=== PATIENT | male | born 1985 | race Caucasian/White ===

== ENCOUNTER 2022-06-05 14:23 | Outpatient (REF) | payer OTHER, SELFPAY ==
--- NOTE | ~2022-06-05 | US_ITS ---
EXAMINATION: US SCROTUM CLINICAL INFORMATION: Scrotal pain. COMPARISON: None TECHNIQUE: A sonogram of the scrotum was performed assessing moreno-scale appearance and color Doppler flow. Spectral Doppler analysis of the arterial and venous flow were performed in the testes bilaterally. FINDINGS: RIGHT: Right testicle measures 5.3 x 2.7 x 3.5 cm, volume 26.5 mL. No focal testicular parenchymal lesions are visualized. Spectral Doppler analysis of the arterial and venous flow is normal in the right testis. Right epididymal head is normal in size. No right hydrocele or varicocele is seen. Right epididymal Doppler flow is normal. LEFT: Left testicle measures 5.2 x 2.6 x 3.4 cm, volume 24.3 mL. No focal testicular parenchymal lesions are visualized. Spectral Doppler analysis of the arterial and venous flow is normal in the left testis. Left epididymal head is normal in size. There are 2 epididymal cyst largest measuring 0.8 x 0.4 x 0.7 cm. No left hydrocele or varicocele is seen. Left epididymal Doppler flow is normal. US/US scrotum IMPRESSION: 2 left epididymal head cyst with largest measuring 0.8 cm. Both testes and the right epididymis is unremarkable.
== END 2022-06-05 14:24 | disposition home or self-care (01) ==
LOC: HO.US 14:23
PROVIDERS: PCP Internal Medicine Medical Oncology; Visit Provider Internal Medicine Medical Oncology
DX: N50.82 Scrotal pain (principal)
CPT/HCPCS: 76870

== ENCOUNTER 2023-11-24 11:01 | Outpatient (REF) | payer OTHER, SELFPAY ==
[2023-11-26 21:04] LABS: Transglutaminase IgA 23.5 U/mL
== END 2023-11-24 11:02 | disposition home or self-care (01) ==
LOC: HO.10HDL 11:01
PROVIDERS: Visit Provider Internal Medicine Medical Oncology
DX: K90.0 Celiac disease (principal)
CPT/HCPCS: 36415; 86364

== ENCOUNTER 2024-10-20 15:24 | Outpatient (REF) | payer OTHER, SELFPAY ==
--- NOTE | ~2024-10-20 | XR_ITS ---
EXAMINATION: XR CHEST CLINICAL INFORMATION: DYSHPAGIA, TACHYCARDIA COMPARISON: None available. TECHNIQUE: 2 views of the chest were obtained. FINDINGS: No significant abnormality is noted involving the heart, lungs, mediastinum, bony thorax or soft tissues. XR/XR chest 2V IMPRESSION: No acute cardiopulmonary disease. Electronically signed by: Chris Sanabria MD 10/20/2024 03:54 PM [facility]
--- OUTSIDE RECORDS SUMMARY | 2024-10-20 16:01 | XMS_ITS ---
Author Organization Kp Rice III, MD Address [address] [place] [address] [place] [address] Care Team Providers Care Wood Planer Name Role Phone Kp Rice Primary Care Provider [phone] Allergies Allergen (clinical drug ingredient) Drug/Non Drug Allergy documented on EMR Reaction Allergy Type Onset Date Status dexamethasone Dexamethasone Unknown Drug Allergy Active Results Component Value Reference Range Notes URINE DIP STICK Reviewed date:05/20/2024 10:43:31 AM Interpretation: Performing Lab: Notes/Report: SG 1.005 1.005 - 1.025 pH 6.5 5.0 - 9.0 GIL Negative Negative - NIT Negative Negative - PRO Negative Negative - Trace GLU Negative Negative - KET Negative Negative - UBG 0.2 0.1 - 1.8 JESUS Negative 0.2 - 1.3 BLD Negative Negative - REASON FOR VISIT Annual Exam Social History Tobacco Use: Social History Observation Description Date Details (start date - stop date) Never Smoker NA - NA Sex Assigned At : Social History Observation Description Sex Assigned At Male Tobacco Use/Smoking Question Answer Notes Patient is a nonsmoker Additional Findings: Tobacco Non-User Aggressive non-smoker Alcohol Screen Question Answer Notes Did you have a drink containing alcohol in the p ast year? No Points 0 Interpretation Negative Problems Problem Type SNOMED Code ICD Code Onset Dates Problem Status W/U Status Risk Notes Problem Gastroesophageal reflux disease with esophagitis (disorder) (515510478) Gastro-esoph ageal reflux disease with esophagitis, without bleeding (K21.00) Active confirmed Vital Signs Temperature 97.2 degrees Fahrenheit 05/20/20 24 Blood pressure systolic 138 mm Hg 05/20/20 24 Blood pressure diastolic 80 mm Hg 024 Heart Rate 98 /min 05/20/2024 Height 68 in 05/20/2024 Weight 179 lbs 05/20/2024 BMI 27.21 kg/m2 05/20/2024 Encounters Encounter Location Date Provider Diagnosis Kp Rice III, MD [address] [place] [address] [place] [address] 05/20/2024 Kp Rice Overweight E66.3 ; Celiac disease K90.0 ; GERD with esophagitis K21.0 and History of Lyme disease Z86.19 Assessments Encounter Date Diagnosis (ICD Code) Assessment Notes Treatment Notes Treatment Clinical Notes 05/20/2024 Overweight (ICD-10 - E66.3) He weighs 179 with a body mass index of 27. We have discussed his cardiac risk factors today. We have reviewed his diet and nutrition. We made a plan to lose weight until the body mass index is in the middle of the normal range. 05/20/2024 Celiac disease (ICD-10 - K90.0) The endomysial antibody level was 23, which is elevated.The endoscopic biopsy was also consistent with celiac disease. He is asymptomatic at this time. Other members of his family have the same disorder. 05/20/2024 GERD with esophagitis (ICD-10 - K21.0) This problem is well controlled with occasional use of medication [id number]. 05/20/2024 History of Lyme disease (ICD-10 - Z86.19) He is no neurological or joint symptoms today. He'll be observed for this. Plan Of Treatment Pending Test Test Name Order Date PROFILE, FASTING (COMPREHENSIVE METABOLI C) 05/20/2024 PSA, TOTAL 05/20/2024 CBC w DIFF 05/20/2024 Lipid Panel 05/20/2024 Next Appt Details Follow Up: 1 Year, Reason: A nnual exam review labs Provider Name:Kp Rice, 05/23/2025 10:30:00 AM, [address] [place] [address] [address], [place], [address], Progress Notes * [place] MIXONOB:1985 (38 yo M)Acc No.[id number]:05/20/2024 Progress Notes Patient:?Irineo Mixon Provider:?Kp Rice MD :1985???Age:38 Y???Sex:Male Saad e:05/20/2024 Address:[address] [place], [place] [id number] Subjective: * Chief Complaints: * ???Annual Exam * HPI: ???Depression Screening:? He comes to the office today at the age of 38 for his annual physical examination. All of his questions are answered today. A careful examination showed no new problems. He seems healthy and well. His weight is in the normal range. Blood work done May 14, 2024 showed total cholesterol 132, triglycerides 89, HDL 41, LDL 74 ratio 3.2Glucose 80 BUN 16, creatinine 1.0, white count 6000, hematocrit 47.9 platelets 140 PSA 1.2. ?PHQ-9?Little interest or pleasure in doing things?Not at all ?Feeling down, depressed, or hopeless?Not at all ?Trouble falling or staying asleep, or sleeping too much?Not at all ?Feeling tired or having little energy?Not at all ?Poor appetite or overeating?Not at all ?Feeling bad about yourself or that you are a failure, or have let yourself or your family down?Not at all ?Trouble concentrating on things, such as reading the newspaper or watching television?Not at all ?Moving or speaking so slowly that other people could have noticed; or the opposite, being so fidgety or restless that you have been moving around a lot more than usual?Not at all ?Thoughts that you would be better off or of hurting yourself in some way?Not at all ?Total Score?0 ???COVID-19 Screening:?Questions?Have you experienced fever, chills, cough, sore throat, shortness of breath, difficulty breathing, muscle aches, loss of taste or smell??No ?Have you been exposed to the virus within the last 10 days??No ?Have you travelled internationally in the last 10 days??No ?Have you been exposed to COVID-19 in the past??Yes ???SDOH Questions:?SDOH Questions?In the past year have you been worried about losing your housing??No ?In the past year have you or any family members you live with been unable to get any of the following when it was really needed? Check all that apply:?None * ROS:?General/Constitutional:?pain?only normal aches and pains.?Chills?denies.?Fatigue?admits.?Fever?denies.?ENT:?Decreased hearing?denies.?Respiratory:?Cough?denies.?Cardiovascular:?Chest pain with exertion?denies.?Dyspnea on exertion?denies.?Shortness of breath?denies.?Gastrointestinal:?Constipation?denies.?Decreased appetite?denies.?Diarrhea?denies.?Heartburn?controlled with medications.?Nausea?denies.?Rectal bleeding?denies.?Vomiting?denies.?Hematology:?bruising?denies.?petechiae?denies.?Swollen glands?none have been noted.?Genitourinary:?Frequent urination?denies.?Musculoskeletal:?Muscle aches?denies.?Painful joints?denies.?Sciatica?denies.?Weakness?denies.?Skin:?Itching?denies.?Rash?denies.?Skin lesion(s)?denies.?Neurologic:?Difficulty speaking?denies.?Dizziness?denies.?Headache?denies.?Low back pain?denies.?Psychiatric:?Depressed mood?denies.? * Medical History:? * Surgical History:?benign les ion removed left mandible 2011surgical repair of torn ligament, shoulder 2013Upper endoscopy to evaluate possibility of celiac disease. 2023 * Hospitalization/Major Diagno stic Procedure:?Denies Past Hospitalization * Family History:?Father: kayy gomez 52 yrs, healthy.?Mother: alive 46 yrs, migraines,hypoglycemia.?1 sister(s) - healthy. 1 son(s) , 1 daughter(s) . .? He has one daughter, Lynnette and a son born 2019. Children diagnosed with Celiac Dicease. * Social History:?Tobacco Use:?Tobacco Use/Smoking?Patient is a?nonsmoker ?Additional Findings: Tobacco Non-User?Aggressive non-smoker ???Drugs/Alcohol:?Drugs?Have you used drugs other than those for medical reasons in the past 12 months??No ?Alcohol Screen?Did you have a drink containing alcohol in the past year??No ?Points?0 ?Interpretation?Negative ???He is single and was born in [place]. 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 He has been to [place] 2014. * Medications:?None * Allergies:?Dexamethasone: Fabian Ly[Allergies Verified] Objective: * Vitals:?Ht: 68 , Wt: 179, BM I:27.21, BP: 138/80, HR: 98, Temp: 97.2, Ht-cm: 172.72, Wt-k.19. * ???Past Orders: Lab:URINE DIP STICK * Order Date 05/20/2024 11/25/2022 08/21/2020 SG 1.005 (Ref Range: 1.005 - 1.025) 1.005 1.005 pH 6.5 (Ref Range: 5.0 - 9.0) 7.0 6.5 GIL Negative (Ref Range: Negative -) Neg negative NIT Negative (Ref Range: Negative -) Neg negative PRO Negative (Ref Range: Negative - Trace) Neg negative GLU Negative (Ref Range: Negative -) Neg negative KET Negative (Ref Range: Negative -) Neg negative UBG 0.2 (Ref Range: 0.1 - 1.8) 0.2 0.2 JESUS Negative (Ref Range: 0.2 - 1.3) Neg negative BLD Negative (Ref Range: Negative -) Neg negative Menstrating NR n/a n/a * Examination: ???General Examination: ?GENERAL APPEARANCE:?pleasant, well nourished, well developed, in no acute distress, calm and relaxed , overweight , man.?HEAD:?atraumatic, normocephalic.?EYES:?eomi, perrla, anicteric, conjugate.?EARS:?normal.?NOSE:?septum intact.?ORAL CAVITY:?normal, unremarkable.?NECK/THYROID:?no jugular venous distention, no carotid bruit, thyroid normal.?LYMPH NODES:?no enlarged lymph nodes,spleen normal.?SKIN:?no suspicious lesions, anicteric.?HEART:?no clicks, gallops, murmurs, or rubs, regular rhythm, S1, S2 normal, no s3, or vascular bruits.?LUNGS:?clear to auscultation .?BREASTS:??no masses palpable bilaterally.?ABDOMEN:?bowel sounds normal, no ascites, no organomegaly, no mass , overweight.?RECTAL EXAM:?not examined.?MUSCULOSKELETAL:?extremities unremarkable, no clubbing, cyanosis or edema.?PERIPHERAL PULSES:?normal.?NEUROLOGIC:?alert and oriented, cranial nerves 2-12 grossly intact, deep tendon reflexes 2+ symmetrical, motor strength normal upper and lower extremities, sensory exam intact.?PSYCH:?alert, oriented , cognitive function intact , cooperative with exam , good eye contact , judgement and insight good , mood/affect full range , speech clear , thought process logical, goal directed.? Assessment: * Assessment: 1.?Overweight - E66.3, He we ighs 179 with a body mass index of 27. We have discussed his cardiac risk factors today. We have reviewed his diet and nutrition. We made a plan to lose weight until the body mass index is in the middle of the normal range.?2.?Celiac disease - K90.0, The endomysial antibody level was 23, which is elevated.The endoscopic biopsy was also consistent with celiac disease. He is asymptomatic at this time. Other members of his family have the same disorder.?3.?GERD with esophagitis - K21.0, This problem is well controlled with occasional use of medication [id number].?4.?History of Lyme disease - Z86.19, He is no neurological or joint symptoms today. He'll be observed for this.? Plan: * Treatment: 2.?Celiac disease?LAB: PROFILE, FASTING (COMPREHENSIVE METABOLIC) ?LAB: PSA, TOTAL ?LAB: CBC w DIFF ?LAB: Lipid Panel * Labs:? * ?Lab: URINE DIP STICK ? Value Reference Range ?SG 1.005 1.005 - 1.025 * ?pH 6.5 5.0 - 9.0 * ?GIL Negative Negative - * ?NIT Negative Negative - * ?PRO Negative Negative - Trac e * ?GLU Negative Negative - * ?KET Negative Negative - * ?UBG 0.2 0.1 - 1.8 * ?JESUS Negative 0.2 - 1.3 * ?BLD Negative Negative - * Procedure Codes:?23162 URINE -NO MICRO * Preventive Medicine:? ??Counseling:?Care goal follow-up plan:?Counseling for abnormal BMI given?Yes ?Above Normal BMI Follow-up?Dietary management education, guidance, and counseling, Dietary needs education, Exercise promotion: strength training, Exercise promotion: stretching, Feeding regime, Giving encouragement to exercise, Lifestyle education regarding diet, Nutrition / feeding management, Nutrition therapy, Prescribed activity/exercise education, Prescribed diet education, Prescribed dietary intake, Special diet education, Weight monitoring , Intervention, Order not done: Medical or Other reason not done * Follow Up:?1 Year (Reason: A nnual exam review labs ) * Images: * Sign off status: Completed true * Provider:?Kp Rice MD Date:?05/03 Generated for Jeffry alatorre/Dwight/eTransmitting on:?10/20/2024 04:00 PM EST History and Physical Notes * HPI (History of Present Illness) Category Sub-Category Detail Notes Depression Screening PHQ-9 Little inte rest or pleasure in doing things: Not at all Feeling down, depressed, or hopeless: No t at all Trouble falling or staying asleep, or sl eeping too much: Not at all Feeling tired or having little energy: N ot at all Poor appetite or overeating: Not at all Feeling bad about yourself o r that you are a failure, or have let yourself or your family down: Not at all Trouble concentrating on thi ngs, such as reading the newspaper or watching television: Not at all Moving or speaking so slowly that other people could have noticed; or the opposite, being so fidgety or restless that you have been moving around a lot more than usual: Not at all Thoughts that you would be b page off or of hurting yourself in some way: Not at all Total Score: 0 COVID-19 Screening Questions Have you had any new onset fever, chills, cough, congestion, sore throat, shortness of breath, muscle aches?: No Have you been exposed to the virus with n the last 10 days?: No Have you travelled internationally [facility] last 10 days?: No Have you been exposed to COVID-19 in the past?: Yes SDOH Questions SDOH Questions In the past year have you been worried about losing your housing?: No In the past year have you or any family members you live with been unable to get any of the following when it was really needed? Check all that apply:: None Examination Category Sub-Category Detail Notes General Examination GENERAL APPEARANCE: pleasant , well nourished, well developed, in no acute distress, calm and relaxed , overweight , man HEAD: atraumatic, normocep halic EYES: eomi, perrla, anicte himanshu, conjugate EARS: normal NOSE: septum intact NECK/THYROID: no jugular venous di stention, no carotid bruit, thyroid normal HEART: no clicks, gallops, murmurs, or rubs, regular rhythm, S1, S2 normal, no s3, or vascular bruits LUNGS: clear to auscultatio n ABDOMEN: bowel sounds normal, no ascites, no organomegaly, no mass , overweight NEUROLOGIC: alert and oriented, cranial nerves 2-12 grossly intact, deep tendon reflexes 2+ symmetrical, motor strength normal upper and lower extremities, sensory exam intact SKIN: no suspicious lesion s, anicteric PERIPHERAL PULSES: normal BREASTS: no masses palpable b ilaterally MUSCULOSKELETAL: extremities unremark able, no clubbing, cyanosis or edema LYMPH NODES: no enlarged lymph no britton,spleen normal RECTAL EXAM: not examined PSYCH: alert, oriented , co gnitive function intact , cooperative with exam , good eye contact , judgement and insight good , mood/affect full range , speech clear , thought process logical, goal directed ORAL CAVITY: normal, unremarkable
--- OUTSIDE RECORDS SUMMARY | 2024-10-20 16:01 | XMS_ITS | Patient Health Record ---
Author Organization [facility] Address [address] [facility] [address] [place] [address] Care Team Providers Care Acid Painter Name Role Phone None, None Primary Care Provider Unavailabl e ALLERGIES No Known Allergies REASON FOR REFERRAL No Information SOCIAL HISTORY Sex Assigned At : Social History Observation Description Sex Assigned At Unknown PLAN OF TREATMENT No Information Insurance Providers Payer Name Payer Address Payer Phone Subscriber Number Group Number Insured Name Patient Relationship to Insured Coverage Start Date Coverage End Date [place] [employer] [address] [place] [phone] [id number] Irineo Iglesias Self - patient is the insured 2020
--- OUTSIDE RECORDS SUMMARY | 2024-10-20 16:01 | XMS_ITS ---
Author Organization Kp Rice III, MD Address [address] [place] [address] [place] [address] Care Team Providers Care Bill Peddler Name Role Phone Kp Rice Primary Care Provider Allergies Allergen (clinical drug ingredient) Drug/Non Drug Allergy documented on EMR Reaction Allergy Type Onset Date Status dexamethasone Dexamethasone Unknown Drug Allergy Active REASON FOR VISIT SOB while laying down, Excersice x 1 month, onset oct fever, body ache, sob still, high heart rate,khas personal soyvi8i, gym is not same Social History Tobacco Use: Social History Observation Description Date Details (start date - stop date) Never Smoker NA - NA Sex Assigned At : Social History Observation Description Sex Assigned At Male Tobacco Use/Smoking Question Answer Notes Patient is a nonsmoker Additional Findings: Tobacco Non-User Aggressive non-smoker Vital Signs Temperature 97.3 degrees Fahrenheit 10/20/20 24 Blood pressure systolic 128 mm Hg 10/20/20 24 Blood pressure diastolic 98 mm Hg 024 Heart Rate 125 /min 10/20/2024 Height 68 in 10/20/2024 Weight 180 lbs 10/20/2024 BMI 27.37 kg/m2 10/20/2024 Encounters Encounter Location Date Provider Diagnosis Kp Rice III, MD [address] [place] [address] [place] [address] 10/20/2024 Kp Rice Dysphagia R13.10 ; Tachycardia, unspecified R00.0 ; Overweight E66.3 ; Chest pain R07.9 and Hypertension I10 Assessments Encounter Date Diagnosis (ICD Code) Assessment Notes Treat ment Notes Treatment Clinical Notes 10/20/2024 Dysphagia (ICD-10 - R13.10) 10/20/2024 Tachycardia, unspecified (ICD-10 - R00.0) 10/20/2024 Overweight (ICD-10 - E66.3) 10/20/2024 Chest pain (ICD-10 - R07.9) 10/20/2024 Hypertension (ICD-10 - I10) Plan Of Treatment Pending Test Test Name Order Date PROFILE, FASTING (COMPREHENSIVE METABOLI C) 10/20/2024 LDH 10/20/2024 TSH (THYROID STIMULATING HORMONE) 2023 CPK 10/20/2024 XR CHEST 2 VIEW PA & LAT 10/20/2024 Echocardiogram 10/20/2024 CBC WITH AUTO DIFF 10/20/2024 Lipid Panel 10/20/2024 Free T4 (Free Thyroxine) 10/20/2024 ECG 7 day holter monitor 10/20/2024 Next Appt Details Provider Name:Kp Rice, 05/23/2025 10:30:00 AM, [address] [place] [address] , [address], [address], Progress Notes * Lorenzo MIXONwDOB:1985 (39 yo M)Acc No.[id number]:10/20/2024 Progress Notes Patient:?Irineo MIXON Provider:?Kp Rice MD :1985???Age:39 Y???Sex:Male Saad e:10/20/2024 Address:[address] [place] [address] Subjective: * Chief Complaints: * ???1. SOB while laying down, Excersice x 1 month. 2. Onset oct fever, body ache, sob still, high heart rate, khas personal srojn6t, gym is not same. * HPI: ???COVID-19 Screening:?Questions?Have you had any new onset fever, chills, cough, congestion, sore throat, shortness of breath, muscle aches??No * ROS:?General/Constitutional:?pain?only normal aches and pains.?Chills?denies.?Fatigue?admits.?Fever?denies.?ENT:?Decreased hearing?denies.?Respiratory:?Cough?denies.?Cardiovascular:?Chest pain with exertion?denies.?Dyspnea on exertion?denies.?Shortness of breath?denies.?Gastrointestinal:?Constipation?denies.?Decreased appetite?denies.?Diarrhea?denies.?Heartburn?denies.?Nausea?denies.?Rectal bleeding?denies.?Vomiting?denies.?Hematology:?bruising?denies.?petechiae?denies.?Swollen glands?none have been noted.?Genitourinary:?Frequent urination?denies.?Musculoskeletal:?Muscle aches?denies.?Painful joints?denies.?Sciatica?denies.?Weakness?denies.?Skin:?Itching?denies.?Rash?denies.?Skin lesion(s)?denies.?Neurologic:?Difficulty speaking?denies.?Dizziness?denies.?Headache?denies.?Low back pain?denies.?Psychiatric:?Depressed mood?denies.? * Medical History:?Atypical ch est pain, Shingles 2011, Lyme disease 2008, Ligament in shoulder, 2013, Overweight, November 2018 GERD. * Surgical History:?benign les ion removed left mandible 2011, surgical repair of torn ligament, shoulder 2013, Upper endoscopy to evaluate possibility of celiac disease. 2023. * Hospitalization/Major Diagno stic Procedure:?Denies Past Hospitalization. * Family History:?Father: kayy e 52 yrs, healthy.?Mother: alive 46 yrs, migraines,hypoglycemia.?1 sister(s) - healthy. 1 son(s) , 1 daughter(s) . .? He has one daughter, Lynnette and a son born 2020 [place]. Children diagnosed with Celiac Dicease. * Social History:?Tobacco Use:?Tobacco Use/Smoking?Patient is a?nonsmoker ?Additional Findings: Tobacco Non-User?Aggressive non-smoker ???He is single and was born in [place]. 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 He has been to [employer] 2014. * Medications:?None * Allergies:?Dexamethasone: Al lergy - Criticality High. Objective: * Vitals:?Ht: 68 , Wt: 180, BM I:27.37, BP: 128/98, HR: 125, Temp: 97.3, Ht-cm: 172.72, Wt-k.65. * Examination: ???General Examination: ?GENERAL APPEARANCE:?pleasant, well nourished, well developed, in no acute distress, calm and relaxed.?HEAD:?atraumatic, normocephalic.?EYES:?eomi, perrla, anicteric, conjugate.?EARS:?normal.?NOSE:?septum intact.?ORAL CAVITY:?normal, unremarkable.?NECK/THYROID:?no jugular venous distention, no carotid bruit, thyroid normal.?LYMPH NODES:?no enlarged lymph nodes,spleen normal.?SKIN:?no suspicious lesions, anicteric.?HEART:?no clicks, gallops, murmurs, or rubs, regular rhythm, S1, S2 normal, no s3, or vascular bruits.?LUNGS:?clear to auscultation .?BREASTS:??no masses palpable bilaterally.?ABDOMEN:?bowel sounds normal, no ascites, no organomegaly, no mass.?RECTAL EXAM:?not examined.?MUSCULOSKELETAL:?extremities unremarkable, no clubbing, cyanosis or edema.?PERIPHERAL PULSES:?normal.?NEUROLOGIC:?alert and oriented, cranial nerves 2-12 grossly intact, deep tendon reflexes 2+ symmetrical, motor strength normal upper and lower extremities, sensory exam intact.?PSYCH:?alert, oriented.? Assessment: * Assessment: 1.?Dysphagia - R13.10???2.?T achycardia, unspecified - R00.0???3.?Overweight - E66.3???4.?Chest pain - R07.9???5.?Hypertension - I10??? Plan: * Treatment: 2.?Tachycardia, unspecified?LAB: PROFILE, FASTING (COMPREHENSIVE METABOLIC) ?LAB: LDH ?LAB: TSH (THYROID STIMULATING HORMONE) ?LAB: CPK ?LAB: CBC WITH AUTO DIFF ?LAB: Lipid Panel ?LAB: Free T4 (Free Thyroxine) ?Imaging: XR CHEST 2 VIEW PA & LAT ?Imaging: Echocardiogram ?Imaging: ECG 7 day holter monitor 3.?Overweight?LAB: PROFILE, FASTING (COMPREHENSIVE METABOLIC) ?LAB: LDH ?LAB: TSH (THYROID STIMULATING HORMONE) ?LAB: CPK ?LAB: CBC WITH AUTO DIFF ?LAB: Lipid Panel ?LAB: Free T4 (Free Thyroxine) 4.?Chest pain?LAB: PROFILE, FASTING (COMPREHENSIVE METABOLIC) ?LAB: LDH ?LAB: TSH (THYROID STIMULATING HORMONE) ?LAB: CPK ?LAB: CBC WITH AUTO DIFF ?LAB: Lipid Panel ?LAB: Free T4 (Free Thyroxine) 5.?Hypertension?LAB: PROFILE, FASTING (COMPREHENSIVE METABOLIC) ?LAB: LDH ?LAB: TSH (THYROID STIMULATING HORMONE) ?LAB: CPK ?LAB: CBC WITH AUTO DIFF ?LAB: Lipid Panel ?LAB: Free T4 (Free Thyroxine) * Preventive Medicine:? ??Counseling:?Care goal follow-up plan:?Counseling [...] Medical or Other reason not done * Images: * The named appointment provid er may or may not be the originator of this progress note, and it is not deemed complete until electronically signed by the appointment provider. Sign off status: Pending * Provider:?Kp Rice MD Date:?10/03 Generated for Jeffry alatorre/Dwight/eTransmitting on:?10/20/2024 04:00 PM EST History and Physical Notes * HPI (History of Present Illness) Category Sub-Category Detail Notes COVID-19 Screening Questions Have you had any new onset fever, chills, cough, congestion, sore throat, shortness of breath, muscle aches?: No Examination Category Sub-Category Detail Notes General Examination GENERAL APPEARANCE: pleasant , well nourished, well developed, in no acute distress, calm and relaxed HEAD: atraumatic, normocep halic EYES: eomi, perrla, anicte himanshu, conjugate EARS: normal NOSE: septum intact NECK/THYROID: no jugular venous di stention, no carotid bruit, thyroid normal HEART: no clicks, gallops, murmurs, or rubs, regular rhythm, S1, S2 normal, no s3, or vascular bruits LUNGS: clear to auscultatio n ABDOMEN: bowel sounds normal, no ascites, no organomegaly, no mass NEUROLOGIC: alert and oriented, cranial nerves 2-12 grossly intact, deep tendon reflexes 2+ symmetrical, motor strength normal upper and lower extremities, sensory exam intact SKIN: no suspicious lesion s, anicteric PERIPHERAL PULSES: normal BREASTS: no masses palpable b ilaterally MUSCULOSKELETAL: extremities unremark able, no clubbing, cyanosis or edema LYMPH NODES: no enlarged lymph no britton,spleen normal RECTAL EXAM: not examined PSYCH: alert, oriented ORAL CAVITY: normal, unremarkable
--- OUTSIDE RECORDS SUMMARY | 2024-10-20 16:01 | XMS_ITS ---
Author Organization Kp Rice III, MD Address [address] [place] [address] [place] [address] Care Team Providers Care Applications Trainer Name Role Phone Kp Rice Primary Care Provider [phone] REASON FOR VISIT Annual Exam Social History Sex Assigned At : Social History Observation Description Sex Assigned At Male Encounters Encounter Location Date Provider Diagnosis Kp Rice III, MD [address] [place] [address] [place] [address] 04/09/2024 Kp Rice Plan Of Treatment Next Appt Details Provider Name:Kp Rice, 05/23/2025 10:30:00 AM, [address] [place] [address] [place], [address], Progress Notes * Lorenzo MIXONwDOB:1985 (39 yo M)Acc No.[id number]:04/09/2024 Progress Notes Patient:?Irineo MIXON Provider:?Kp Rice MD :1985???Age:38 Y???Sex:Male Saad e:04/09/2024 Address:[address] [place] [address] Subjective: * Chief Complaints: * ???1. Annual Exam. * Medical History:? Objective: * Vitals:? Assessment: Plan: * Treatment: * Images: * The named appointment provid er may or may not be the originator of this progress note, and it is not deemed complete until electronically signed by the appointment provider. Sign off status: Pending * Provider:?Kp Rice MD Date:?05/2024 Generated for Jeffry alatorre/Dwight/Elizabeth on:?10/20/2024 04:00 PM EST
--- OUTSIDE RECORDS SUMMARY | 2024-10-20 16:01 | XMS_ITS | Patient Health Record ---
Author Organization Kp Rice III, MD Address [address] [place] [address] [place] [address] Care Team Providers Care Chemical Cell Changer Name Role Phone Kp Rice Primary Care [...] 0.2 - 1.3 BLD Negative Negative - Transglutaminase IgA Reviewed date:12/19/2023 08:46:54 AM Interpretation: Performing Lab:[facility], [address] [place] [phone] Notes/Report: Transglutaminase IgA 23.5 Value Interpretation ----- <15.0 Antibody not detected > or = 15.0 Antibody detected THIS TEST WAS PERFORMED AT: [facility] [address] [place] [phone] SUDHA COLINDRES MD XR chest 2V (Not yet reviewe d by provider) Interpretation: Performing Lab: Notes/Report: [address] [address] XRay Report Signed Patient: Irineo Iglesias MR#: [id number] : 1985 Acct:[id number] Age/Sex: 39 / M ADM Date: 10/20/24 Loc: [facility] Attending Dr: Kp Rice MD Ordering Physician: Kp Rice MD Date of Service: 10/20/24 Procedure(s): XR chest 2V Accession Number(s): [id number] cc: Kp Rice MD EXAMINATION: XR CHEST CLINICAL INFORMATION: DYSHPAGIA, TACHYCARDIA COMPARISON: None available. TECHNIQUE: 2 views of the chest were obtained. FINDINGS: No significant abnormality is noted involving the heart, lungs, mediastinum, bony thorax or soft tissues. XR/XR chest 2V IMPRESSION: No acute cardiopulmonary disease. 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 TECHNIQUE: 2 views of the chest were obtained. FINDINGS: No significant abnormality is noted involving the heart, lungs, mediastinum, bony th orax or soft tissues. X R/XR chest 2V IMPRESSION: No acute cardiopulmo nary disease. 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 0) Referral Organization Kp Rice III, MD Referring Provider First Name Kp Referring Provider Last Name Dwayne Referring Provider Speciality Internal M edicine Referred Provider Efren Patterson Referred Provider Specialty Gastroentero logy General Notes Rosemary Conklin 12/17 12:08:18 PM > faxed referral, progress note and labs, Rosemary Conklin 12/29/2023 11:49:12 AM EST > Patient has not been scheduled at this time. Referral is under review, has all the information and will contact patient to schedule within the next 2 weeks., Rosemary Conklin 02/04/2024 01:28:06 PM EDT > Spoke with Gemma stated there is nothing for patient and to send over with progress note and lab work ATTN: Gemma Referral Priority Routine Referral Appointment Date 02/20/2024 Immunizations Vaccine Route Administration Date Status Comme nts Influenza no Preserv 3 and > IM Intramuscular 12/25/2017 Administered Td (adult) IM Intramuscular 12/25/2017 Administered Influenza no Preserv 3 and > Unknown 09/11/2019 Administered COVID- 19 Vaccine Unknown 02/08/2021 Administered Pfize r first dose COVID- 19 Vaccine Unknown 03/01/2021 Administered Secon d Dose COVID- 19 Vaccine Unknown 10/18/2021 Administered BOOST ER Social History Tobacco Use: Social History Observation [...] Problem Status W/U Status Risk Notes Problem 931585741 Overweight (E66.3) Active confirmed He weighs 179 with a body mass index of 27. We have discussed his cardiac risk factors today. We have reviewed his diet and nutrition. We made a plan to lose weight until the body mass index is in the middle of the normal range. Problem 91833930 Hypertension (I10) Active confirmed Problem 262849739 Celiac disease (K90.0) Active confirmed The endomysial antibody level was 23, which is elevated.The endoscopic biopsy was also consistent with celiac disease. He is asymptomatic at this time. Other members of his family have the same disorder. Problem 825366801 History of Lyme disease (Z86.19) Active confirmed He is no neurological or joint symptoms today. He'll be observed for this. Problem 848888694369573 History of herpe s zoster (Z86.19) Active confirmed No further upper extremity occurred. Problem Dysphagia (71419810) Dysphagia (R13.10) Active confirmed Problem 933865463 GERD with esophagitis (K21.0) Active confirmed This problem is well controlled with occasional use of medication [id number]-xdb-pqgr ter. Problem Gastroesophageal reflux disease with esophagitis (disorder) (222848166) Gastro-esophageal reflux disease with esophagitis, without bleeding (K21.00) Active confirmed Problem Gastroesophageal reflux disease with esophagitis (disorder) (363087018) Gastroesophageal reflux disease with esophagitis, unspecified whether hemorrhage (K21.00) Active confirmed His reflux symptoms are well controlled with qdea-ceh-rpry ter medication. No change in his regimen was made. Vital Signs Heart Rate 125 /min 10/20/2024 Temperature 97.3 degrees Fahrenheit 10/20/2024 Blood pressure diastolic 98 mm Hg 10/20/2024 Height 68 in 10/20/2024 Blood pressure systolic 128 mm Hg 10/20/2024 Weight 180 lbs 10/20/2024 BMI 27.37 kg/m2 10/20/2024 Encounters Encounter Location Date Provider Diagnosis pK Rice III, MD [address] [place] [address] [place] [address] 10/20/2024 Kp Rice Dysphagia R13.10 ; Tachycardia, unspecified R00.0 ; Overweight E66.3 ; Chest pain R07.9 and Hypertension I10 Kp Rice III, MD [address] [place] [address] [place] [address] 12/08/2023 Kp Rice Overweight E66.3 ; B PH (benign prostatic hyperplasia) N40.0 ; GERD with esophagitis K21.0 ; Neck pain M54.2 and Celiac disease K90.0 Kp Rice III, MD [address] [place] [address] [address] [place] [address] 05/20/2024 Kp Rice Overweight E66.3 ; Celiac disease K90.0 ; GERD with esophagitis K21.0 and History of Lyme disease Z86.19 Kp Rice III, MD [address] [place] [address] [address] [place] [address] 11/24/2023 Kp Rice Celiac disease K90.0 Assessments Encounter Date Diagnosis (ICD Code) Assessment Notes Treatment Notes Treatment Clinical Notes 10/20/2024 Dysphagia (ICD-10 - R13.10) 12/08/2023 Overweight (ICD-10 - E66.3) His BMI is 26.7. We discussed his diet and nutrition. I recommended gradual weight loss and total body mass index is in the normal range. 12/08/2023 BPH (benign prostatic hyperplasia) (ICD-10 - N40.0) We have discussed lifestyle modification as a way to reduce nocturia. 05/20/2024 Overweight (ICD-10 - E66.3) He weighs [...] of his family have the same disorder. 10/20/2024 Tachycardia, unspecified (ICD-10 - R00.0) 12/08/2023 GERD with esophagitis (ICD-10 - K21.0) This problem is well controlled with occasional use of medication [id number]-laa-lgvajzp. 05/20/2024 GERD with esophagitis (ICD-10 - K21.0) This problem is well controlled with occasional use of medication puva-[id number]-yzgndyf. 11/24/2023 Celiac disease (ICD-10 - K90.0) 10/20/2024 Overweight (ICD-10 - E66.3) 12/08/2023 Neck pain (ICD-10 - M54.2) He will continue to use heat and rest and ibuprofen. He no longer requires the cyclobenzaprine or dexamethasone 05/20/2024 History of Lyme disease (ICD-10 - Z86.19) He is no neurological or joint symptoms today. He'll be observed for this. 10/20/2024 Chest pain (ICD-10 - R07.9) 12/08/2023 Celiac disease (ICD-10 - K90.0) He has tested positive for this genetic disorder. He has a daughter with the same. He was referred to GI for definitive advice. 10/20/2024 Hypertension (ICD-10 - I10) Plan Of Treatment Pending Test Test Name Order Date EKG 11/06/2018 PROFILE, FASTING (COMPREHENSIVE METABOLI C) 08/19/2019 PROFILE, FASTING (COMPREHENSIVE METABOLI C) 11/01/2021 PROFILE, FASTING (COMPREHENSIVE METABOLI C) 06/05/2017 PROFILE, FASTING (COMPREHENSIVE METABOLI C) 08/05/2018 PROFILE, FASTING (COMPREHENSIVE METABOLI C) 11/25/2022 PROFILE, FASTING (COMPREHENSIVE METABOLI C) 10/20/2024 PROFILE, FASTING (COMPREHENSIVE METABOLI C) 08/21/2020 PROFILE, FASTING (COMPREHENSIVE METABOLI C) 05/20/2024 PROFILE, FASTING (COMPREHENSIVE METABOLI C) 05/03/2022 PROFILE, FASTING (COMPREHENSIVE METABOLI C) 12/25/2017 PROFILE, FASTING (COMPREHENSIVE METABOLI C) 12/08/2023 LIPID PANEL 12/25/2017 LIPID PANEL 08/19/2019 LIPID PANEL 11/01/2021 LIPID PANEL 06/05/2017 LIPID PANEL 08/05/2018 LIPID PANEL 08/21/2020 LDH 10/20/2024 TSH (THYROID STIMULATING HORMONE) 2023 CPK 10/20/2024 PSA, TOTAL 12/08/2023 PSA, TOTAL 05/20/2024 CBC w DIFF 05/03/2022 CBC w DIFF 08/21/2020 CBC w DIFF 05/20/2024 CBC w DIFF 12/25/2017 CBC w DIFF 08/19/2019 CBC w DIFF 11/25/2022 CBC w DIFF 11/01/2021 CBC w DIFF 06/05/2017 CBC w DIFF 08/05/2018 TRANSGLUTAMINASE AB IGA 11/24/2023 XR CHEST 2 VIEW PA & LAT 10/20/2024 Echocardiogram 10/20/2024 CBC WITH AUTO DIFF 10/20/2024 CBC WITH AUTO DIFF 12/08/2023 Lipid Panel 05/03/2022 Lipid Panel 05/20/2024 Lipid Panel 10/20/2024 Lipid Panel 12/08/2023 Lipid Panel 11/25/2022 Free T4 (Free Thyroxine) 10/20/2024 XR chest 2V 10/20/2024 ECG 7 day holter monitor 10/20/2024 Next Appt Details Provider Name:Kp Rice, 05/23/2025 10:30:00 AM, [address] [place] [address] [address] [facility] [place], [place], [address], Insurance Providers Payer Name Payer Address Payer Phone Subscriber Number Group Number Insured Name Patient Relationship to Insured Coverage Start Date Coverage End Date [employer] [address] [place] [address] [id number] Irineo Iglesias Self - patient is the insured Medical (General) History Medical History History ICD Code atypical chest pain shingles 2011 Lyme disease 2009 Ligament in shoulder, 2014 overweight November 2018 GERD Surgical History Surgery Date(Month/Year) Upper endoscopy to evaluate possibility of celiac disease. 2023 surgical repair of torn ligament, should er 2013 benign lesion removed left mandible 2011
== END 2024-10-20 15:25 | disposition home or self-care (01) ==
LOC: HO.XRAY 15:24
PROVIDERS: PCP Internal Medicine Medical Oncology; Visit Provider Internal Medicine Medical Oncology
DX: R13.10 Dysphagia, unspecified (principal); R00.0 Tachycardia, unspecified
CPT/HCPCS: 71046

== ENCOUNTER → 2024-11-02 08:56 | Outpatient (REF) | payer OTHER, SELFPAY ==
--- OUTSIDE RECORDS SUMMARY | 2024-11-02 08:58 | XMS_ITS | Patient Health Record ---
Author Organization Kp Rice III, MD Address [address] [place] [address] [place] [address] Care Team Providers Care Manager Gift Name Role Phone Kp Rice Primary Care [...] Negative - UBG 0.2 0.1 - 1.8 JEUSS Negative 0.2 - 1.3 BLD Negative Negative - Transglutaminase IgA Reviewed date:12/19/2023 08:46:54 AM Interpretation: Performing Lab:[facility], [address] [place] [phone] Notes/Report: Transglutaminase IgA 23.5 Value Interpretation ----- <15.0 Antibody not detected > or = 15.0 Antibody detected THIS TEST WAS PERFORMED AT: [facility] [address] [place] [phone] SUDHA COLINDRES MD XR chest 2V Reviewed date:10/25/2024 02:14:35 PM Interpretation: Performing Lab: Notes/Report: [address] [place] [address] XRay Report Signed Patient: Irineo Iglesias MR#: [id number] : 1985 Acct:[id number] Age/Sex: 39 / M ADM Date: 10/20/24 Loc: [facility] Attending Dr: Kp Rice MD Ordering Physician: Kp Rice MD Date of Service: 10/20/24 Procedure(s): XR chest 2V Accession Number(s): [id number] cc: Kp Rice MD EXAMINATION: XR CHEST CLINICAL INFORMATION: DYSHPAGIA, TACHYCARDIA COMPARISON: None available. TECHNIQUE: 2 views of the chest were obtained. FINDINGS: No significant abnormality is noted involving the heart, lungs, mediastinum, bony thorax or soft tissues. XR/XR chest 2V IMPRESSION: No acute cardiopulmonary disease. Electronically signed by: Chris Sanabria MD 10/20/2024 03:54 PM EST Dictated By: Chris Sanabria MD Signed By: <Electronically signed by Chris Sanabria MD in OV> 10/20/24 1554 DD/ 1540 TD/TT: 10/20/24 1548 Newspaper Copy Editor: [address] [address] XRay Report Signed Patient: Lorenzo Iglesias MR#: [id number] : 1985 Acct:[id number] Age/Sex: 39 / M ADM Date: 10/20/24 Loc: [facility] Attending Dr: Kp Rice MD Ordering Physician: Kp Rice MD Date of Service: 10/20/24 Procedure(s): XR [address] st 2V Accession Number(s): [id number] cc: Kp Rice MD EXAMINATION: XR CHEST [...] 10/20/24 1554 DD/ 1540 TD/TT: 10/20/24 1548 Newspaper Copy Editor: Reason For Referral Reason Evaluate and Treat New Dx of Celiac Disease Diagnosis 1 Celiac disease (K90. 0) Referral Organization Kp Rice III, MD Referring Provider First Name Kp Referring Provider Last Name Rice Referring Provider Speciality Internal edicine Referred Provider Efren Patterson Referred Provider Specialty Gastroentero logy General Notes Rosemary Conklin 12/17 12:08:18 PM > faxed referral, progress note and labsKaterin Amber 12/29/2023 11:49:12 AM EST > Patient has not been scheduled at this time. Referral is under review, has all the information and will contact patient to schedule within the next 2 weeks.Katerin Amber 02/04/2024 01:28:06 PM EDT > Spoke with Gemma stated there is nothing for patient and to send over with progress note and lab work ATTN: Gemma Referral Priority Routine Referral Appointment Date 02/20/2024 Reason low TSH and free T4 Hyperthyroidism evaluate and treat Diagnosis 1 Hyperthyroidism (E05 .90) Referral Organization Kp Rice III, MD Referring Provider First Name Kp Referring Provider Last Name Dwayne Referring Provider Speciality Internal edicine Referred Provider Channing Jacques Referred Provider Specialty Endocrinolog y General Notes Renuka Villarreal [employer] 10/25 02:45:27 PM > ref/demo/progress note/labs faxed to Dr Jacques office they stated they would call patient with appt Referral Priority Routine Reason celiac disease roxanne luate and treatment Diagnosis 1 Celiac disease (K90. 0) Referral Organization Kp Rice III, MD Referring Provider First Name Kp Referring Provider Last Name Rice Referring Provider Speciality Internal edicine Referred Provider Specialty Gastroentero logy General Notes Renuka Villarreal [employer] 10/25 03:10:21 PM pt was beeing seen by dr Patterson but now as of 11/2024 that office is no longer taking his insurance pt is going to contact his insurance to get names of participating Watch And Clock Repairer and we will refer him to one of those Referral Priority Routine Medications Medication SIG (Take, Route, Fr equency, Duration) Notes Start Date End Date Status Atenolol 50 MG 1 tablet Orally Once a day for 30 days 10/25/2024 Active Immunizations Vaccine Route Administration Date Status Comme [...] Problem Status W/U Status Risk Notes Problem 441556042 Overweight (E66.3) Active confirmed His body mass index is 27. We have discussed his diet and nutrition at length today. He will continue his exercises. He will try to reduce his body mass index to 25. Problem Chest pain (28333603) Chest pain (R07.9) Active confirmed He continues to have some chest discomfort with swallowing. This will be investigated. Problem 03493995 Hypertension (I10) Active confirmed His blood pressure today was stable at 120/80. Problem 523934428 Celiac disease (K90.0) Active confirmed The endomysial antibody level was 23, which is elevated.The endoscopic biopsy was also consistent with celiac disease. He is asymptomatic at this time. Other members of his family have the same disorder. Problem Tachycardia (3764223) Tachycardia, unspecified (R00.0) Active confirmed He continues to have resting tachycardia to 100. His thyroid function tests have been norrmal and will be repeated. I will try to determine if this is a functional disorder or physiological. His examination today was unremarkable. His cardiac examination showed no abnormalities except a heart rate of 100. His oxygen saturation is normal Problem 973932438 History of Lyme disease (Z86.19) Active confirmed He is no neurological or joint symptoms today. He'll be observed for this. Problem 305127755998328 History of herpe s zoster (Z86.19) Active confirmed No further upper extremity occurred. Problem 67871162 Hyperthyroidism (E05.90) Active confirmed Problem Dysphagia (58292377) Dysphagia (R13.10) Active confirmed Problem 262391913 GERD with esophagitis (K21.0) Active confirmed This problem is well controlled with occasional use of medication tlpy-bho-ldvxu er. Problem Gastroesophageal reflux disease with esophagitis (disorder) (358344854) Gastro-esophageal reflux disease with esophagitis, without bleeding (K21.00) Active confirmed Problem Gastroesophageal reflux disease with esophagitis (disorder) (788098194) Gastroesophageal reflux disease with esophagitis, unspecified whether hemorrhage (K21.00) Active confirmed His reflux symptoms are well controlled with psnz-mqe-zcegk er medication. No change in his regimen was made. Vital Signs Heart Rate 100 /min 10/20/2024 Temperature 97.3 degrees Fahrenheit 10/20/2024 Blood pressure diastolic 80 mm Hg 10/20/2024 Height 68 in 10/20/2024 Blood pressure systolic 128 mm Hg 10/20/2024 Weight 180 lbs 10/20/2024 BMI 27.37 kg/m2 10/20/2024 Encounters Encounter Location Date Provider Diagnosis Kp Rice III, MD [address] [place] [address] [place] [address] 12/08/2023 Kp Rice Overweight E66.3 ; B PH (benign prostatic hyperplasia) N40.0 ; GERD with esophagitis K21.0 ; Neck pain M54.2 and Celiac disease K90.0 Kp Rice III, MD [address] [place] [address] [place] [address] 05/20/2024 Kp Rice Overweight E66.3 ; Celiac disease K90.0 ; GERD with esophagitis K21.0 and History of Lyme disease Z86.19 Kp Rice III, MD [address] [place] [address] [place] [address] 10/20/2024 Kp Rice Tachycardia, unspecified R00.0 ; Overweight E66.3 ; Chest pain R07.9 and Hypertension I10 Kp Rice III, MD [address] [place] [address] [address] [place] [address] 10/25/2024 Kp Rice III, MD [address] [place] [address] [address] [place] [address] 11/24/2023 Kp Rice Celiac disease K90.0 Kp Rice III, MD [address] [place] [address] [address] [place] [address] 10/25/2024 pK Rice Assessments Encounter Date Diagnosis (ICD Code) Assessment Notes Treatment Notes Treatment Clinical Notes 12/08/2023 Overweight (ICD-10 - E66.3) His BMI [...] his family have the same disorder. 10/20/2024 Overweight (ICD-10 - E66.3) His body mass index is 27. We have discussed his diet and nutrition at length today. He will continue his exercises. He will try to reduce his body mass index to 25. 10/20/2024 Tachycardia, unspecified (ICD-10 - R00.0) He continues to have resting tachycardia to 100. His thyroid function tests have been norrmal and will be repeated. I will try to determine if this is a functional disorder or physiological. His examination today was unremarkable. His cardiac examination showed no abnormalities except a heart rate of 100. His oxygen saturation is normal 12/08/2023 GERD with esophagitis (ICD-10 - K21.0) This problem is well controlled with occasional use of medication ffti-wbv-fwkfrrv. 05/20/2024 GERD with esophagitis (ICD-10 - K21.0) This problem is well controlled with occasional use of medication nxvh-env-hysygad. 10/20/2024 Chest pain (ICD-10 - R07.9) He continues to have some chest discomfort with swallowing. This will be investigated. 11/24/2023 Celiac disease (ICD-10 - K90.0) 12/08/2023 Neck pain (ICD-10 - M54.2) He will continue to use heat and rest and ibuprofen. He no longer requires the cyclobenzaprine or dexamethasone 05/20/2024 History of Lyme disease (ICD-10 - Z86.19) He is no neurological or joint symptoms today. He'll be observed for this. 10/20/2024 Hypertension (ICD-10 - I10) His blood pressure today was stable at 120/80. 12/08/2023 Celiac disease (ICD-10 - K90.0) He has tested positive for this genetic disorder. He has a daughter with the same. He was referred to GI for definitive advice. Plan Of Treatment Pending Test Test Name Order Date EKG 11/06/2018 PROFILE, FASTING (COMPREHENSIVE METABOLI C) 12/08/2023 PROFILE, FASTING (COMPREHENSIVE METABOLI C) 08/19/2019 PROFILE, FASTING (COMPREHENSIVE METABOLI C) 11/01/2021 PROFILE, FASTING (COMPREHENSIVE METABOLI C) 06/05/2017 PROFILE, FASTING (COMPREHENSIVE METABOLI C) 11/25/2022 PROFILE, FASTING (COMPREHENSIVE METABOLI C) 08/05/2018 PROFILE, FASTING (COMPREHENSIVE METABOLI C) 10/20/2024 PROFILE, FASTING (COMPREHENSIVE METABOLI C) 05/20/2024 PROFILE, FASTING (COMPREHENSIVE METABOLI C) 08/21/2020 PROFILE, FASTING (COMPREHENSIVE METABOLI C) 05/03/2022 PROFILE, FASTING (COMPREHENSIVE METABOLI C) 12/25/2017 LIPID PANEL 08/21/2020 LIPID PANEL 12/25/2017 LIPID PANEL 08/19/2019 LIPID PANEL 11/01/2021 LIPID PANEL 06/05/2017 LIPID PANEL 08/05/2018 LDH 10/20/2024 TSH (THYROID STIMULATING HORMONE) 2023 CPK 10/20/2024 PSA, TOTAL 05/20/2024 PSA, TOTAL 12/08/2023 CBC w DIFF 05/03/2022 CBC w DIFF 05/20/2024 CBC w DIFF 08/21/2020 CBC w DIFF 12/25/2017 CBC w DIFF 08/19/2019 CBC w DIFF 11/25/2022 CBC w DIFF 11/01/2021 CBC w DIFF 06/05/2017 CBC w DIFF 08/05/2018 TRANSGLUTAMINASE AB IGA 11/24/2023 Echocardiogram 10/20/2024 CBC WITH AUTO DIFF 10/20/2024 CBC WITH AUTO DIFF 12/08/2023 Lipid Panel 05/03/2022 Lipid Panel 05/20/2024 Lipid Panel 10/20/2024 Lipid Panel 12/08/2023 Lipid Panel 11/25/2022 Free T4 (Free Thyroxine) 10/20/2024 ECG 7 day holter monitor 10/20/2024 Next Appt Details Provider Name:Kp Rice, 05/23/2025 10:30:00 AM, [address] [place] [address] , [facility] [address], [place], [address], Insurance Providers Payer Name Payer Address Payer Phone Subscriber Number Group Number Insured Name Patient Relationship to Insured Coverage Start Date Coverage End Date [employer] [address] [place] [address] [id number] Irineo Iglesias Self - patient is the insured Medical (General) History Medical History History ICD Code atypical chest pain shingles 2012 Lyme disease 2009 Ligament in shoulder, 2014 overweight November 2018 GERD Surgical History Surgery Date(Month/Year) benign lesion removed left mandible 2012 surgical repair of torn ligament, should er 2014 Upper endoscopy to evaluate possibility of celiac disease. 2023 No history Hospitalization History Reason Date(Month/Year) No history
--- OUTSIDE RECORDS SUMMARY | 2024-11-02 08:58 | XMS_ITS ---
Author Organization Kp Rice III, MD Address [address] [place] [address] [place] [address] Care Team Providers Care Manufacturing Plant Controller Name Role Phone Kp Rice Primary Care Provider Allergies Allergen (clinical drug ingredient) Drug/Non Drug Allergy documented on EMR Reaction Allergy Type Onset Date Status dexamethasone Dexamethasone Unknown Drug Allergy Active REASON FOR VISIT Recent viral syndrome, Short of breath with exercise for a month Social History Tobacco Use: Social History Observation Description Date Details (start date - stop date) Never Smoker NA - NA Sex Assigned At : Social History Observation Description Sex Assigned At Male Tobacco Use/Smoking Question Answer Notes Patient is a nonsmoker Additional Findings: Tobacco Non-User Aggressive non-smoker Problems Problem Type SNOMED Code ICD Code Onset Dates Problem Status W/U Status Risk Notes Problem Tachycardia (5338691) Tachycardia, unspecified (R00.0) Active confirmed He continues to have resting tachycardia to 100. His thyroid function tests have been norrmal and will be repeated. I will try to determine if this is a functional disorder or physiological. His examination today was unremarkable. His cardiac examination showed no abnormalities except a heart rate of 100. His oxygen saturation is normal Problem Chest pain (78407770) Chest pain (R07.9) Active confirmed He continues to have some chest discomfort with swallowing. This will be investigated. Vital Signs Temperature 97.3 degrees Fahrenheit 10/20/20 24 Blood pressure systolic 128 mm Hg 10/20/20 24 Blood pressure diastolic 80 mm Hg 024 Heart Rate 100 /min 10/20/2024 Height 68 in 10/20/2024 Weight 180 lbs 10/20/2024 BMI 27.37 kg/m2 10/20/2024 Encounters Encounter Location Date Provider Diagnosis Kp Rice III, MD [address] [place] [address] [place] [address] 10/20/2024 Kp Juniorne Tachycardia, unspecified R00.0 ; Overweight E66.3 ; Chest pain R07.9 and Hypertension I10 Assessments Encounter Date Diagnosis (ICD Code) Assessment Notes Treatment Notes Treatment Clinical Notes 10/20/2024 Tachycardia, unspecified (ICD-10 - R00.0) He continues to have resting tachycardia to 100. His thyroid function tests have been norrmal and will be repeated. I will try to determine if this is a functional disorder or physiological. His examination today was unremarkable. His cardiac examination showed no abnormalities except a heart rate of 100. His oxygen saturation is normal 10/20/2024 Overweight (ICD-10 - E66.3) His body mass index is 27. We have discussed his diet and nutrition at length today. He will continue his exercises. He will try to reduce his body mass index to 25. 10/20/2024 Chest pain (ICD-10 - R07.9) He continues to have some chest discomfort with swallowing. This will be investigated. 10/20/2024 Hypertension (ICD-10 - I10) His blood pressure today was stable at 120/80. Plan Of Treatment Pending Test Test Name Order Date PROFILE, FASTING (COMPREHENSIVE METABOLI C) 10/20/2024 LDH 10/20/2024 TSH (THYROID STIMULATING HORMONE) 2023 CPK 10/20/2024 Echocardiogram 10/20/2024 CBC WITH AUTO DIFF 10/20/2024 Lipid Panel 10/20/2024 Free T4 (Free Thyroxine) 10/20/2024 ECG 7 day holter monitor 10/20/2024 Next Appt Details Follow Up: 3 Weeks, Reason: Office visit Provider Name:Kp Rice, 05/23/2025 10:30:00 AM, [address] [place] [address] [address], [place], [address], Progress Notes * Lorenzo MIXONwDOB:1985 (39 yo M)Acc No.[id number]:10/20/2024 Progress Notes Patient:?Irineo MIXON Provider:?Kp Rice MD :1985???Age:39 Y???Sex:Male Saad e:10/20/2024 Address:[address] [place], [place] [id number] Subjective: * Chief Complaints: * ???Recent viral syndromeShor t of breath with exercise for a month * HPI: ???COVID-19 Screening:?Questions?Have you had any new onset fever, chills, cough, congestion, sore throat, shortness of breath, muscle aches??No ???:? The patient, a 39-year-old male, reported feeling unwell since the beginning of August. He experienced a high fever of 203 degrees Fahrenheit for four days, which eventually broke. However, since then, he has been experiencing constant shortness of breath and a consistently higher heart rate. 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 The patient also mentioned that his heart rate, which used to be in the 50s while sleeping, is now consistently in the 90s. He also reported feeling more out of breath than usual when climbing stairs. The patient denied any swelling in his legs or ankles. He also denied having a rash or sores around his mouth in August. The patient's symptoms have remained consistent since August and have not improved. * ROS:?General/Constitutional:?pain?only normal aches and pains.?Chills?denies.?Fatigue?admits.?Fever?Recent viral syndrome within the last month with fever now resolved.?Admits?Lightheadedness.?Allergy/Immunology:?Denies?Rash.?ENT:?Decreased hearing?denies.?Respiratory:?Cough?non-productive.?Cardiovascular:?Chest pain with exertion?denies.?Dyspnea on exertion?denies.?Shortness of breath?with exertion.?Gastrointestinal:?Constipation?denies.?Decreased appetite?denies.?Diarrhea?denies.?Heartburn?denies.?Nausea?denies.?Rectal bleeding?denies.?Vomiting?denies.?Hematology:?bruising?denies.?petechiae?denies.?Swollen glands?none have been noted.?Genitourinary:?Frequent urination?denies.?Musculoskeletal:?Muscle aches?denies.?Painful joints?denies.?Sciatica?denies.?Weakness?denies.?Skin:?Itching?denies.?Rash?denies.?Skin lesion(s)?denies.?Neurologic:?Difficulty speaking?denies.?Dizziness?denies.?Headache?denies.?Low back pain?denies.?Psychiatric:?Depressed mood?denies.? * Medical History:? * Surgical History:?benign les ion removed left mandible 2012surgical repair of torn ligament, shoulder 2014Upper endoscopy to evaluate possibility of celiac disease. 2023No history * Hospitalization/Major Diagno stic Procedure:?No history * Family History:?Father: kayy gomez 52 yrs, healthy.?Mother: alive 46 yrs, migraines,hypoglycemia.?Daughter(s): alive.?1 sister(s) - healthy. 1 son(s) , 1 daughter(s) . .? He has one daughter, Lynnette and a son born 2019. Children diagnosed with Celiac Dicease. Mother and sister have thyroid issues. * Social History:?Tobacco Use:?Tobacco Use/Smoking?Patient is a?nonsmoker ?Additional Findings: Tobacco Non-User?Aggressive non-smoker ???He is single and was born in [place]. 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 He has been to [facility] 2014. * Medications:?None * Allergies:?Dexamethasone: Al lergy - Criticality Highno[Allergies Verified] Objective: * Vitals:?Ht: 68 , Wt: 180, BM I:27.37, BP: 128/80, HR: 100, Temp: 97.3, Ht-cm: 172.72, Wt-k.65. * Examination: ???General Examination: ?GENERAL APPEARANCE:?pleasant, well nourished, well developed, in no acute distress, calm and relaxed, overweight, man.?HEAD:?atraumatic, normocephalic.?EYES:?eomi, perrla, anicteric, conjugate.?EARS:?normal.?NOSE:?septum intact.?ORAL CAVITY:?normal, unremarkable.?NECK/THYROID:?no jugular venous distention, no carotid bruit, thyroid normal.?LYMPH NODES:?no enlarged lymph nodes,spleen normal.?SKIN:?no suspicious lesions, anicteric.?HEART:?no clicks, gallops, murmurs, or rubs, regular rhythm, S1, S2 normal, no s3, or vascular bruits.?LUNGS:?clear to auscultation .?BREASTS:??no masses palpable bilaterally.?ABDOMEN:?bowel sounds normal, no ascites, no organomegaly, no mass, overweight.?RECTAL EXAM:?not examined.?MUSCULOSKELETAL:?extremities unremarkable, no clubbing, cyanosis or edema.?PERIPHERAL PULSES:?normal.?NEUROLOGIC:?alert and oriented, cranial nerves 2-12 grossly intact, deep tendon reflexes 2+ symmetrical, motor strength normal upper and lower extremities, sensory exam intact.?PSYCH:?alert, oriented, anxious appearing, mood depressed.? Assessment: * Assessment: 1.?Tachycardia, unspecified - R00.0 (Primary)???Notes :He continues to have resting tachycardia to 100.? His thyroid function tests have been norrmal and will be repeated.? I will try to determine if this is a functional disorder or physiological.? His examination today was unremarkable.? His cardiac examination showed no abnormalities except a heart rate of 100.? His oxygen saturation is normal???2.?Overweight - E66.3???Notes :His body mass index is 27.? We have discussed his diet and nutrition at length today.? He will continue his exercises.? He will try to reduce his body mass index to 25.???3.?Chest pain - R07.9???Notes :He continues to have some chest discomfort with swallowing.? This will be investigated.???4.?Hypertension - I10???Notes :His blood pressure today was stable at 120/80.??? Plan: * Treatment: 2.?Overweight?LAB: PROFILE, FASTING (COMPREHENSIVE METABOLIC) ?LAB: LDH ?LAB: TSH (THYROID STIMULATING HORMONE) ?LAB: CPK ?LAB: CBC WITH AUTO DIFF ?LAB: Lipid Panel ?LAB: Free T4 (Free Thyroxine) 3.?Chest pain?LAB: PROFILE, FASTING (COMPREHENSIVE METABOLIC) ?LAB: LDH ?LAB: TSH (THYROID STIMULATING HORMONE) ?LAB: CPK ?LAB: CBC WITH AUTO DIFF ?LAB: Lipid Panel ?LAB: Free T4 (Free Thyroxine) 4.?Hypertension?LAB: PROFILE, FASTING (COMPREHENSIVE METABOLIC) ?LAB: LDH ?LAB: TSH (THYROID STIMULATING HORMONE) ?LAB: CPK ?LAB: CBC WITH AUTO DIFF ?LAB: Lipid Panel ?LAB: Free T4 (Free Thyroxine) * Procedure Codes:? * Preventive Medicine:? ??Counseling:?Care goal follow-up plan:?Counseling [...] or Other reason not done * Follow Up:?3 Weeks (Reason: Office visit) * Images: * Sign off status: Completed true * Provider:?Kp Rice MD Date:?10/03 Generated for Jeffry alatorre/Dwight/eTransmitting on:?11/02/2024 08:58 AM EST History and Physical Notes * HPI (History of Present Illness) Category Sub-Category Detail Notes COVID-19 Screening Questions Have you had any new onset fever, chills, cough, congestion, sore throat, shortness of breath, muscle aches?: No Examination Category Sub-Category Detail Notes General Examination GENERAL APPEARANCE: pleasant , well nourished, well developed, in no acute distress, calm and relaxed, overweight, man HEAD: atraumatic, normocep halic EYES: eomi, perrla, anicte himanshu, conjugate EARS: normal NOSE: septum intact NECK/THYROID: no jugular venous di stention, no carotid bruit, thyroid normal HEART: no clicks, gallops, murmurs, or rubs, regular rhythm, S1, S2 normal, no s3, or vascular bruits LUNGS: clear to auscultatio n ABDOMEN: bowel sounds normal, no ascites, no organomegaly, no mass, overweight NEUROLOGIC: alert and oriented, cranial nerves 2-12 grossly intact, deep tendon reflexes 2+ symmetrical, motor strength normal upper and lower extremities, sensory exam intact SKIN: no suspicious lesion s, anicteric PERIPHERAL PULSES: normal BREASTS: no masses palpable b ilaterally MUSCULOSKELETAL: extremities unremark able, no clubbing, cyanosis or edema LYMPH NODES: no enlarged lymph no britton,spleen normal RECTAL EXAM: not examined PSYCH: alert, oriented, anx ious appearing, mood depressed ORAL CAVITY: normal, unremarkable
--- OUTSIDE RECORDS SUMMARY | 2024-11-02 08:58 | XMS_ITS ---
Author Organization Kp Rice III, MD Address [address] [place] [address] [place] [address] Care Team Providers Care Hammer Operator Name Role Phone Kp Rice Primary Care Provider Medications Medication SIG (Take, Route, Fr equency, Duration) Notes Start Date End Date Status Atenolol 50 MG 1 tablet Orally Once a day for 30 days 10/25/2024 Active Social History Sex Assigned At : Social History Observation Description Sex Assigned At Male Encounters Encounter Location Date Provider Diagnosis Kp Rice III, MD [address] [place] [address] [place] [address] 10/25/2024 Kp Rice Plan Of Treatment Medication Medication Name Sig Start Date Stop Date Notes Atenolol 50 MG 1 tablet Orally Once a day for 30 days 10/04 Next Appt Details Provider Name:Kp Rice, 05/23/2025 10:30:00 AM, [address] [place] [address] [place], [address], Progress Notes * Lorenzo MIXONwDOB:1985 (39 yo M)Acc No.[id number]:10/25/2024 Patient:?Irineo MIXON :1985???Age:39 Y???Sex:Male Address:[address] [place] [address] * Refills? Start Atenolol Tablet, 50 MG, Orally, 30, 1 tablet, Once a day, 30 days, Refills=3 * true * Date:? Generated for Jeffry alatorre/Dwight/Elizabeth on:?11/02/2024 08:58 AM EST
--- OUTSIDE RECORDS SUMMARY | 2024-11-02 08:58 | XMS_ITS ---
Author Organization Kp Rice III, MD Address [address] [place] [address] [place] [address] Care Team Providers Care Sales Analytics Manager Name Role Phone Kp Rice Primary Care Provider Reason For Referral Reason low TSH and free T4 Hyperthyroidism evaluate and treat Diagnosis 1 Hyperthyroidism (E05 .90) Referral Organization Kp Rice III, MD Referring Provider First Name Kp Referring Provider Last Name Dwayne Referring Provider Speciality Internal M edicine Referred Provider Channing Jacques Referred Provider Specialty Endocrinolog y General Notes Renuka Villarreal [facility] 10/25 02:45:27 PM > ref/demo/progress note/labs faxed to Dr Jacques office they stated they would call patient with appt Referral Priority Routine Reason celiac disease roxanne luate and treatment Diagnosis 1 Celiac disease (K90. 0) Referral Organization Kp Rice III, MD Referring Provider First Name Kp Referring Provider Last Name Dwayne Referring Provider Speciality Internal M edicine Referred Provider Specialty Gastroentero logy General Notes Renuka Villarreal [facility] 10/25 03:10:21 PM pt was beeing seen by dr Patterson but now as of 11/2024 that office is no longer taking his insurance pt is going to contact his insurance to get names of participating Pony Roll Finisher and we will refer him to one of those Referral Priority Routine REASON FOR VISIT Message Social History Sex Assigned At : Social History Observation Description Sex Assigned At Male Encounters Encounter Location Date Provider Diagnosis Kp Rice III, MD [address] [place] [address] [place] [address] 10/25/2024 Kp Rice Plan Of Treatment Referrals Referral Date Details 10/25/2024 10/25/2024, low TSH and free T4 Hyperthyroidism evaluate and treat, Channing Jacques 10/25/2024 10/25/2024, celiac d isease evaluate and treatment Next Appt Details Provider Name:Kp Rice, 05/23/2025 10:30:00 AM, [address] [place] [address] [address], [place], [address], Progress Notes * Lorenzo MIXONwDOB:1985 (39 yo M)Acc No.[id number]:10/25/2024 Patient:?Irineo MIXON :1985???Age:39 Y???Sex:Male Address:[address] [place] [address] Subjective: * Chief Complaints: * ???Message * Medical History:? * Surgical History:? * Hospitalization/Major Diagno stic Procedure:? * Medications:? Objective: * Vitals:? * Physical Examination:? Assessment: Plan: * Treatment: * Procedure Codes:? * * Date:? Consultation Request Notes Referral Date Referring Provider Referred Provider Pedrito collins 10/25/2024 Kp Rice Marc low TSH and free T4 Hyperthyroidism evaluate and treat 10/25/2024 Kp Rice , celiac disease evaluate and treatment
--- OUTSIDE RECORDS SUMMARY | 2024-11-02 08:59 | XMS_ITS | Continuity of Care Document ---
Author Organization [facility] [address] [place] [address] Phone [phone] Care Team Providers Care Acquisition Advisor Name Role Phone Kp Rice M.D. Care Team Information Receive r [phone] Social History Type Date Description Comments Sex Unknown Medical Devices Description No Information Available Encounters Description No Information Available Assessments Description No Information Available Plan of Treatment Future Appointment(s):* 01/24/2025 10:45 am - Channing Jacques M.D. at Main Office Functional Status Description No Information Available Mental Status Description No Information Available Referrals Description No Information Available
--- OUTSIDE RECORDS SUMMARY | 2024-11-02 08:59 | XMS_ITS | Patient Health Record ---
Author Organization [facility] Address [address] [facility] [address] [place] [address] Care Team Providers Care Six Sigma Black Trainer Name Role Phone None, None Primary Care Provider Unavailabl e ALLERGIES No Known Allergies REASON FOR REFERRAL No Information SOCIAL HISTORY Sex Assigned At : Social History Observation Description Sex Assigned At Unknown PLAN OF TREATMENT No Information Insurance Providers Payer Name Payer Address Payer Phone Subscriber Number Group Number Insured Name Patient Relationship to Insured Coverage Start Date Coverage End Date DC [employer] [id number] [place] [address] [id number] Irineo Iglesias Self - patient is the insured 2020
--- NOTE | 2024-11-02 09:00 | CA_ITS ---
Transthoracic Echocardiogram Patient (Last, First, Middle): Irineo Iglesias Thomas Gender: Male Date of : 1985 Age: 39 Procedure Date: 11/02/2024 Procedure Type: Transthoracic Echocardiogram Location: OP Height: 177.8 cm Weight: 79.38 kg BSA: 1.97 m2 Heart Rate: bpm BP: 120 / 78 mmHg Marine Biologist: TO Referring MD: Kp Rice MD [employer] Workers: Refugio Mendez MD Symptoms: R13.10 DYSPHAGIA R00.0 TACHY Study Quality: Adequate ECG Rhythm: Sinus Conclusions: - Essentially normal study Findings Left Ventricle Normal left ventricular size, thickness, and systolic function. The visually estimated ejection fraction is between 55-60%. Spectral Doppler is indicative of a normal filling pattern. Peak GLS is -22.6%, within normal limits. Right Ventricle Normal right ventricular cavity size and systolic function. Atria Both atria are normal in size. There is no evidence of interatrial shunt. Aortic Valve Normal aortic valve structure and function. There is no aortic valve stenosis. There is no aortic valve regurgitation. Mitral Valve Normal mitral valve structure and function. There is trace mitral valve regurgitation. There is no mitral valve stenosis. Pulmonic Valve The pulmonic valve is likely normal. Tricuspid Valve Normal tricuspid valve structure. There is trace tricuspid valve regurgitation. The right ventricular systolic pressure is normal. The right ventricular systolic pressure is 22 mmHg. Normal right atrial pressure. There is no evidence of pulmonary hypertension. Great Vessels All visible segments of the aorta are normal in size. The pulmonary artery was not well visualized. Venous The inferior vena cava is normal in size and collapses greater than 50% with inspiration. Pericardium/Pleural There is no evidence of pericardial effusion. Prior Study Comparison No prior study available for comparison. Measurements 2D Linear Measurements IVSd: 0.94 0.6-0.9/0.6-1.0 cm LVIDd: 5.03 3.9-5.3/4.2-5.9 cm LVIDd Index: 2.55 2.4-3.2/2.2-3.1 cm/m2 LVIDs: 3.47 2.0-3.6 cm LVPWd: 1.00 0.7-1.1 cm LA Diam: 3.60 2.7-3.8/3.0-4.0 cm LAIDs Index: 1.83 1.5-2.3 cm/m2 LV Mass: 219.34 67-162/88-224 g LV Mass Index: 111.34 43-95/49-115 g/m2 LVOT Diam: 2.00 3.0+(-)1.3 cm 2D Systolic Function EF 4C: 58.10 >55% EF 2C: 60.50 >55% EF BiP: 59.10 >55% Mitral Valve MV Pk E: 0.99 MV PK A: 0.52 MV Decel Time: 178.00 E/A: 1.90 E'Lateral: 11.60 E'Medial: 7.18 E/E' Med: 13.80 E/E' Lat: 8.50 PHT: 52.00 MVA PHT: 4.23 Decel Roane: 5.57 Aortic Valve AoV Pk Parish: 1.65 AoV Mn Parish: 1.03 AoV VTI: 0.29 AoV Pk Grad: 11.00 Aov Mn Grad: 5.00 SHANNON Cont.VTI: 2.86 LVOT LVOT Pk Parish: 1.60 LVOT Mn Parish: 1.03 LVOT VTI: 0.26 LVOT Pk Grad: 10.00 LVOT Mn Grad: 5.00 LVOT Diam: 2.00 LVOT Area: 3.14 Diastolic Function MV Pk E: 0.99 MV Pk A: 0.52 E/A: 1.90 E'Medial: 7.18 E/E' Med: 13.80 E' Laterial: 11.60 E/E' Lat: 8.50 Right Ventricle TAPSE (mm): 25.20 TVS' Parish: 13.60 Tricuspid Valve TR Pk Parish: 2.17 TR Pk Grad: 19.00 RA Press: 3.00 RVSP: 22.00 Great Vessels Aorta Sinus of Valsalva: 2.88 2.0-3.5 cm Ao Asc: 3.10 2.1-3.4 cm Ao Arch: 2.90 Updated in Other Vendor System with Status of Final Refugio Mendez MD electronically signed on 11/02/2024 6:06:40 PM with status of Final
--- NOTE | 2024-11-02 09:01 | HM_ITS ---
* Total monitoring time 7 days. * Underlying rhythm is sinus with an average rate of 81/Min. * Rare supraventricular and ventricular ectopy. * No significant arrhythmias. * No significant pauses or high-grade AV blocks. * Palpitations in patient diary correlates with sinus rhythm. MTDD
== END ==
LOC: HO.CARD 08:56
PROVIDERS: PCP Internal Medicine Medical Oncology; Visit Provider Internal Medicine Medical Oncology
DX: R13.10 Dysphagia, unspecified (principal); R00.0 Tachycardia, unspecified
CPT/HCPCS: 93242; 93306; 93356

== ENCOUNTER → 2024-11-02 09:00 | Outpatient (BNV) | payer OTHER, SELFPAY | PROVIDERS: PCP Internal Medicine Medical Oncology; Visit Provider Internal Medicine Cardiovascular Disease | DX: I36.1 Nonrheumatic tricuspid (valve) insufficiency (principal) | CPT/HCPCS: 93306; 93356 ==

== ENCOUNTER 2024-12-03 09:50 | Outpatient (REF) | payer OTHER, SELFPAY ==
--- OUTSIDE RECORDS SUMMARY | 2024-12-03 10:30 | XMS_ITS | Continuity of Care Document ---
Author Organization [facility] Address [address] [place] [address]- Care Team Providers Care Tobacco Conditioner Name Role Phone Kp Rice MD Primary Care Physician Encounter [facility] Date(s): 11/10/24 - 11/17/24 [facility] [address] [place] [address]- Encounter Diagnosis Celiac disease(Discharge Diagnosis) - 11/10/24 Attending Physician: Malik Rahman Referring Physician: Kp Rice MD Encounter Type: Office Visit Problem List Diagnosis Diagnosis Type Effective Dates Health Status Cl inical Service Informant Celiac disease Discharge Diagnosis 11/10/24 Vital Signs Most recent to oldest [Reference Range]: 1 Height 176.5 cm (11/10/24 1:38 PM) Weight 81.5 kg (11/10/24 1:38 PM) Oxygen Saturation [94-100 %] 100 % (11/10/24 1:38 PM) Pulse Rate [55-90 bpm] 90 bpm (11/10/24 1:38 PM) Body Mass Index [18.5-24.99 kg/m2] 26.16 kg/m2 *H* (11/10/24 1:38 PM) Blood Pressure [90-138/55-84 mm Hg] 138/ 74mm Hg (11/10/24 1:38 PM) Mode of Delivery (Oxygen) Room air (11/10/24 1:38 PM) Blood pressure sites Arm, left (11/10/24 1:38 PM) Weight Obtained Via Bed scale (11/10/24 1:38 PM) Note * Yazmin Summers: PERFORM Event Display: Patient Education/Instruction Authored Date: [id number] Ambulatory Adult Visit Summary [facility] [address] [place] [address] [address] Name: LIZA MIXON : 1985?? Visit: 11/10/2024 13:26?? Ambulatory Visit Instructions ?? Your Care Team Primary Care Provider Dwayne GORMAN, Kp Avendaño? This Visit Provider Malik Rahman Your Diagnosis Celiac disease Vitals Signs Pulse Rate: 90 bpm Height: 176.5 cm Systolic Blood Pressure: 138 mm Hg Weight: 81.5 kg Diastolic Blood Pressure: 74 mm Hg Body Mass Index:??26.16 kg/m2??High Oxygen Saturation: 100 % Body surface area: 2 What to do next Scheduled Follow-Up Appointments 2024 11:00 AM EST ?? Where: [facility] [place] [address]- Status: Pending Future Orders XR Dexa Bone Density (Axial), Routine, Reason for Exam: Screening for Osteoporosis, celica disease,screen for osteo, Patient Does Not Need Assistance, Once, *Est. 12/30/24 due within 3 days, Within 3 Days Iron + Iron Binding Capacity - Routine, Once, 11/10/24 14:08:00 EST, Single or Recurring Future Order, [facility], Blood?? Ferritin - Routine, Once, 11/10/24 14:08:00 EST, Single or Recurring Future Order, [facility], Blood?? Vitamin B12 Level - Routine, Once, 11/10/24 14:08:00 EST, Single or Recurring Future Order, [facility], Blood?? Vitamin D 25 Hydroxy Level - Routine, Once, 11/10/24 14:08:00 EST, Single or Recurring Future Order, [facility], Blood?? Folate Level - Routine, Once, 11/10/24 14:08:00 EST, Single or Recurring Future Order, [facility], Blood?? Calcium Level - Routine, Once, 11/10/24 14:08:00 EST, Single or Recurring Future Order, [facility], Blood?? Zinc Level - Routine, Once, 11/10/24 14:08:00 EST, Single or Recurring Future Order, [facility], Blood?? Magnesium Level - Routine, Once, 11/10/24 14:09:00 EST, Single or Recurring Future Order, [facility], Blood?? Test Performed Below is a partial list of the tests performed during your Visit. You may have had other tests and procedures not included in this list. Please discuss all test results with your provider. Calcium Level?-- Results Pending -- Ferritin?-- Results Pending -- Folate Level?-- Results Pending -- Iron + Iron Binding Capacity?-- Results Pending -- Magnesium Level?-- Results Pending -- Vitamin B12 Level?-- Results Pending -- Vitamin D 25 Hydroxy Level?-- Results Pending -- Zinc Level?-- Results Pending -- Medications and Immunizations Administered Medications Given During Visit No medications given during this visit.?? Allergies (NKA means No Known Allergies) No active allergies Common Emergency Awareness Tips IS IT A STROKE? Act FAST and Check for these signs: FACE Does the face look uneven? ARM Does one arm drift down? SPEECH Does their speech sound strange? TIME Call at any sign of stroke ?? Heart Attack Signs Chest discomfort: Most heart attacks involve discomfort in the center of the chest and lasts more than a few minutes, or goes away and comes back. It can feel like uncomfortable pressure, squeezing, fullness or pain. Discomfort in upper body: Symptoms can include pain or discomfort in one or both arms, back, neck, jaw or stomach. Shortness of breath: With or without discomfort. Other signs: Breaking out in a cold sweat, nausea, or lightheaded. Remember, MINUTES DO MATTER. If you experience any of these heart attack warning signs, call to get immediate medical attention! ?? Smoking can increase your chances of developing chronic health problems and can cause harmful effects to other family members in your house. If you smoke, you are strongly encouraged to quit. Please call [employer] at [phone] or 5-375-450[employer] ([phone]) or log in to [email or web address] for referrals to smoking cessation programs. ?? The National Suicide Prevention Hotline is available 26/05 if you or someone you know needs to find a reason to keep living. By calling 5-366-376-rtnr (7166) you'll be connected to a skilled, trained counselor at a crisis center in your area. [facility] [employer] [facility] You can view and manage your care through the patient portal or by using a health care hima of your choosing. [employer] is a website that allows you to securely view your medical information including your hospital discharge summary, office visit summaries, medications and follow-up visits. You can also request appointments, renew medications, and request access to your medical information using a health care hima of your choosing, or just ask a question. You can enroll at [email or web address] or register during your next office visit. [facility], in keeping with [facility] guidance, no longer requires face masks for staff, patientsor visitors in most situations. Similiar to time spent indoors at other locations, there is the chance that you were exposed to repiratory viruses during your time with us (such as flu or COVID-19). If you develop symptoms concerning for a viral respiratory infection, please seek testing (and treatment if indicated) from your medical provider or home test kit. ?? Disclaimer: The information provided is of a general nature and is intended to be used in conjunction with the recommendations and advice of your health care practitioner. Every effort has been made to ensure that the information provided is accurate and complete at the time it is provided to you however, as your needs change, or, as new information becomes available, different or additional instructions may be required. ?? If you have questions, please consult with your primary care provider or pharmacist, as appropriate. This information is not intended to serve as substitution for assessment and evaluation by a qualified health care provider. If you do not have a primary care provider, you may find a [facility] provider by calling [facility] [employer] [facility] at [phone]. Patient Care team information Care Team Personnel Name: Kp Rice MD Position: [facility] Physician - Oncology Member Role: PCP Address: [address] [place] [address]- Telecom: Care Team Related Persons Name: TANIKA MIXON Insurance Providers Guarantor name: LIZA ORAL Health Plan Information #: 1 Payer: [employer] NON HMO PLANS Member Number: [id number] Policy Number: LUCIEN Group Number: [id number] Health Plan Information #: 2 Payer: [employer] NON O PLANS Member Number: [id number] Policy Number: LUCIEN Group Number: [id number]
[2024-12-03 12:35] LABS: Free T4 (Free Thyroxine) 1.48 ng/dL (0.71-1.85); Thyroid Stimulating Hormone < 0.01 uIU/mL (0.32-4.0)
[2024-12-04 22:59] LABS: Triiodothyronine T3 Free 8.8 pg/mL (2.3-4.2)
== END 2024-12-03 09:51 | disposition home or self-care (01) ==
LOC: HO.10HDL 09:50
PROVIDERS: Visit Provider Internal Medicine Medical Oncology
DX: E66.3 Overweight (principal); E05.90 Thyrotoxicosis, unspecified without thyrotoxic crisis or storm
CPT/HCPCS: 36415; 84439; 84443; 84481